=== PATIENT | female | born 1995 | race Caucasian/White ===

== ENCOUNTER 2017-07-05 19:20 | Emergency (ER) | payer OTHER ==
[~2017-07-05] VITALS: Ht 172.7 cm; Wt 99.8 kg
[~2017-07-05 19:20] MED LIST: AZIT250T PO; DEXA4TAB PO; FERR240T9 PO; IBP600T1 PO; PREN1TAB19 PO
--- OUTSIDE RECORDS SUMMARY | 2017-07-05 19:25 | XMS REPORT ---
Author Author JASPAL OCAMPO Organization [facility] Address [address] [place] [address] Care Team Providers Care Computer Systems Information Director Name Role Phone CONNOR OCAMPOICE Unavailable PROBLEMS Type Condition ICD9-CM Code [id number] Code Onset Dates Condition Status SNOMED Code Problem ADHD (attention deficit hyperactivity disorder) 314.01 Active 089836352 ALLERGIES No Known Allergies SOCIAL HISTORY Never Assessed PLAN OF CARE Activity Details Follow Up prn Reason: VITAL SIGNS Height 68 in 2016-05-14 Weight 245.8 lbs 2016-05-14 Temperature 97.4 degrees Fahrenheit 2016-05-14 Heart Rate 86 bpm 2016-05-14 Respiratory Rate 18 2016-05-14 BMI 37.37 kg/m2 2016-05-14 Blood pressure systolic 126 mmHg 2016-05-14 Blood pressure diastolic 76 mmHg 2016-05-14 MEDICATIONS No Known Medications RESULTS Name Result Date Reference Range STREP A (IN HOUSE) 2016-05-14 STREP A negative Control + Lot # [id number] Exp date august 20 PROCEDURES Procedure Date Ordered Result Body Site STREP A ASSAY W/OPTIC May 14, 2016 IMMUNIZATIONS No Known Immunizations MEDICAL (GENERAL) HISTORY Type Description Date Hospitalization History childbirth only 09/2014
--- OUTSIDE RECORDS SUMMARY | 2017-07-05 19:25 | XMS REPORT ---
Author Author ULISES SHEIKH Organization [employer] Address Unknown Phone Unavailable Care Team Providers Care Bistro Server Name Role Phone ULISES SHEIKH CP Unavailable Allergies, Adverse Reactions, Alerts Substance Reaction Event Type N.K.D.A. 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 [address] 28-0.8 MG Orally not defined Procedures Procedure Coding System Code Date INSERT DRUG IMPLANT DEVICE CPT-4 55373 Nov 27, 2014 URINE TEST CPT-4 03833 Nov 27, 2014 ETONOGESTREL IMPLANT SYSTEM CPT-4 J7307 Nov 27, 2014 Vital Signs Date/Time: Nov 27, 2014 Temperature 98.2 F Weight 211.5 lbs Height 68 in BMI 32.15 Index Blood Pressure Diastolic 76 mmHg Blood Pressure Systolic 118 mmHg Cardiac Monitoring Heart Rate 80 bpm Results Name Result Date Reference Range Unit Abnormality Flag TEST, URINE (IN HOUSE) Summary Purpose eClinicalWorks Submission
--- OUTSIDE RECORDS SUMMARY | 2017-07-05 19:25 | XMS REPORT ---
Author Author SOFY TOMLINSON Organization [facility] Address [address] [place] [address] Care Team Providers Care Visual Merchandising Coordinator Name Role Phone SOFY TOMLISNON Unavailable PROBLEMS Type Condition ICD9-CM Code IHP76-GX Code Onset Dates Condition Status SNOMED Code Problem ADHD (attention deficit hyperactivity disorder) 314.01 Active 168224699 Assessment Encounter for Nexplanon removal Z30.46 Mar, Active 901127862 Assessment control counseling Z30.9 Mar, Active 81930762 ALLERGIES Substance Reaction Event Type Date Status N.K.D.A. Unknown Non Drug Allergy Mar, Unknown SOCIAL HISTORY No smoking Hx information available PLAN OF CARE Activity Details Future/Pending Procedure NEXPLANON REMOVAL prn,Reason: VITAL SIGNS Height 68 in 2016-03-17 Weight 245 lbs 2016-03-17 Heart Rate 84 bpm 2016-03-17 Respiratory Rate 20 2016-03-17 BMI 37.25 kg/m2 2016-03-17 Blood pressure systolic 100 mmHg 2016-03-17 Blood pressure diastolic 70 mmHg 2016-03-17 MEDICATIONS Medication Instructions Dosage Frequency Start Date End Date Duration Status Benadryl 25 MG Active RESULTS Name Result Date Reference Range TEST, URINE (IN HOUSE) 2016-03-17 RESULTS Negative Lot # [id number] Control Exp date 07/2017 PROCEDURES Procedure Date Ordered Related Diagnosis Body Site REMOVE DRUG IMPLANT DEVICE Mar 17, 2016 URINE TEST Mar 17, 2016 IMMUNIZATIONS No Known Immunizations
--- OUTSIDE RECORDS SUMMARY | 2017-07-05 19:26 | XMS REPORT ---
Author THUY Lanier Organization [employer] Address Unknown Phone Unavailable Care Team Providers Care Harbor Tug Captain Name Role Phone THUY FRANKLIN CP Unavailable Allergies, Adverse Reactions, Alerts Substance Reaction Event Type N.K.D.A. Info Not Available Non Drug Allergy Problems Problem Type Condition Code Onset Dates Condition Status Assessment Folliculitis L73.9 Active Problem ADHD (attention deficit hyperactivity disorder) 314.01 Active Medications Medication Code System Code Instructions Start Date End Date Status Dosage Concerta [facility] [address]-98 18 MG Orally Once a day Dec 06, 2014 1 tablet in the morning [facility] [address] 28-0.8 MG Orally not defined Doxycycline Hyclate [facility] [address]-78 100 MG Orally every 12 hrs Feb 19, 2016 Feb 29, 2016 1 capsule Procedures Procedure Coding System Code Date Office Visit, Est Pt., Level 3 CPT-4 35612 Feb 19, 2016 Vital Signs Date/Time: Feb 19, 2016 Cardiac Monitoring Heart Rate 108 bpm Weight 245 lbs Height 68 in BMI 37.25 Index Blood Pressure Diastolic 78 mmHg Blood Pressure Systolic 116 mmHg Results No Known Results Summary Purpose eClinicalWorks Submission
--- OUTSIDE RECORDS SUMMARY | 2017-07-05 19:26 | XMS REPORT | Continuity of Care Document ---
Author Author [facility] Organization [facility] Address Unknown Phone Unavailable Allergies Active Description Code Type Severity Reaction Onset Reported/Identified Relationship to Patient Clinical Status Yes No Known Drug Allergies [id number] Drug Allergy Unknown N/A 09/25/2014 Medications There is no data. Problems Date Dx Coded Attending Type Code Diagnosis Diagnosed By 09/27/2014 TODD DE LOS SANTOS DO Ot 285.9 ANEMIA NOS 09/27/2014 TODD DE LOS SANTOS DO Ot 648.22 ANEMIA-DELIVERED W P/P 09/27/2014 TODD DE LOS SANTOS DO Ot 648.91 OTH CURR COND-DELIVERED 09/27/2014 TODD DE LOS SANTOS DO Ot 665.41 HIGH VAGINAL LACER-DELIV 09/27/2014 TODD DE LOS SANTOS DO Ot V02.51 GROUP B STREPT CARRIER/SUSPECTED CARRIER 09/27/2014 TODD DE LOS SANTOS DO Ot V27.0 DELIVER-SINGLE LIVEBORN 01/01/2016 THUY CAMPBELL DO Ot E66.9 OBESITY, UNSPECIFIED 01/01/2016 THUY CAMPBELL DO Ot F17.210 NICOTINE DEPENDENCE, CIGARETTES, UNCOMPL 01/01/2016 THUY CAMPBELL DO Ot H61.22 IMPACTED CERUMEN, LEFT EAR 01/01/2016 THUY CAMPBELL DO Ot H92.02 OTALGIA, LEFT EAR 01/01/2016 THUY CAMPBELL DO Ot J02.9 ACUTE PHARYNGITIS, UNSPECIFIED 01/01/2016 THUY CAMPBELL DO Ot R59.1 GENERALIZED ENLARGED LYMPH NODES 01/02/2016 THUY CAMPBELL DO Ot E66.9 OBESITY, UNSPECIFIED 01/02/2016 THUY CAMPBELL DO Ot F17.210 NICOTINE DEPENDENCE, CIGARETTES, UNCOMPL 01/02/2016 THUY CAMPBELL DO Ot H61.22 IMPACTED CERUMEN, LEFT EAR 01/02/2016 THUY CAMPBELL DO Ot H92.02 OTALGIA, LEFT EAR 01/02/2016 THUY CAMPBELL DO, Ot J02.9 ACUTE PHARYNGITIS, UNSPECIFIED 01/02/2016 ADRIAN THUY GUERIN Ot R59.1 GENERALIZED ENLARGED LYMPH NODES Procedures Code Description Performed By Performed On 75.69 09/25/2014 Results Test Result Range Complete blood count (CBC) with automated white blood cell (WBC) differential - 01/01/16 21:45 Blood leukocytes automated count (number/volume) 11.9 10*3/uL 4.3-11.0 Blood erythrocytes automated count (number/volume) 4.91 10*6/uL 4.35-5.85 Venous blood hemoglobin measurement (mass/volume) 13.6 g/dL 11.5-16.0 Blood hematocrit (volume fraction) 41 % 35-52 Automated erythrocyte mean corpuscular volume 84 [foz_us] 80-99 Automated erythrocyte mean corpuscular hemoglobin (mass per erythrocyte) 28 pg 25-34 Automated erythrocyte mean corpuscular hemoglobin concentration measurement ( mass/volume) 33 g/dL 32-36 Automated erythrocyte distribution width ratio 14.9 % 10.0-14.5 Automated blood platelet count (count/volume) 341 10*3/uL 130-400 Automated blood platelet mean volume measurement 9.5 [foz_us] 7.4-10.4 Automated blood neutrophils/100 leukocytes 64 % 42-75 Automated blood lymphocytes/100 leukocytes 30 % 12-44 Blood monocytes/100 leukocytes 5 % 0-12 Automated blood eosinophils/100 leukocytes 2 % 0-10 Automated blood basophils/100 leukocytes 0 % 0-10 Blood neutrophils automated count (number/volume) 7.6 10*3 1.8-7.8 Blood lymphocytes automated count (number/volume) 3.5 10*3 1.0-4.0 Blood monocytes automated count (number/volume) 0.6 10*3 0.0-1.0 Automated eosinophil count 0.2 10*3/uL 0.0-0.3 Automated blood basophil count (count/volume) 0.0 10*3/uL 0.0-0.1 Streptococcus pyogenes antigen detection - 01/01/16 21:45 Streptococcus pyogenes antigen detection NEGATIVE NEGATIVE Serum or plasma choriogonadotropin ( test) detection - 01/01/16 21:45 Serum or plasma choriogonadotropin ( test) detection NEGATIVE NEGATIVE Bacterial throat culture - 01/01/16 21:45 Bacterial throat culture NBS NRG THYROID ANALYZER - 03/26/17 08:48 TSH 0.55 mIU/L NRG Encounters ACCT No. Visit Date/Time Discharge Status Pt. Type Provider Facility Loc./Unit Complaint [id number] 01/01/2016 20:54:00 01/01/2016 22:39:00 DIS Emergency ADRIANTHUY SALES DO [facility] ER L EAR PAIN/SORE THROAT [id number] 09/25/2014 19:07:00 09/27/2014 16:30:00 DIS Inpatient TODD DE LOS SANTOS DO [facility] LDRP LABOR [id number] 06/24/2017 10:40:00 06/24/2017 23:59:59 [facility] Outpatient JUDY CUMMINGS [facility] [id number] 03/26/2017 09:20:00 Document Registration
--- OUTSIDE RECORDS SUMMARY | 2017-07-05 19:26 | XMS REPORT ---
Author OLINDA Chambers [facility] eClinicalWorks Address Unknown Phone Unavailable Care Team Providers Care Tube Teller Name Role Phone OLINDA ARRIOLA Unavailable Allergies No Known Allergies Problems Problem Type Condition ICD-9 Code Onset Dates Condition Status Assessment ADHD (attention deficit hyperactivity disorder) 314.01 Active Problem Upper respiratory infection, viral 465.9 Active Problem ADHD (attention deficit hyperactivity disorder) 314.01 Active Problem Routine adult health maintenance V70.0 Active Problem , normal first V22.0 Active Problem Anemia affecting 648.20 Active Problem Streptococcus b carrier state affecting 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
--- OUTSIDE RECORDS SUMMARY | 2017-07-05 19:26 | XMS REPORT ---
Author Author OLINDA ARRIOLA [facility] e[employer] Address Unknown Phone Unavailable Care Team Providers Care Registered Land Surveyor Name Role Phone OLINDA ARRIOLA CP Unavailable Allergies, Adverse Reactions, Alerts Substance Reaction Event Type N.K.D.A. Info Not Available Non Drug Allergy Problems Problem Type Condition ICD-9 Code Onset Dates Condition Status Assessment Upper respiratory infection, viral 465.9 Active Assessment ADHD (attention deficit hyperactivity disorder) 314.01 [...] Instructions Start Date End Date Status Dosage [facility] [address] 28-0.8 MG Orally not defined Procedures Procedure Coding System Code Date Office Visit, Est Pt., Level 4 CPT-4 39922 Dec 04, 2014 No Charge CPT-4 20723 Dec 04, 2014 Vital Signs Date/Time: Dec 04, 2014 Temperature 97.8 F Weight 213.9 lbs Height 68 in BMI 32.52 Index Blood Pressure Diastolic 64 mmHg Blood Pressure Systolic 116 mmHg Cardiac Monitoring Heart Rate 100 bpm Results Name Result Date Reference Range Unit Abnormality Flag [employer] Summary Purpose eClinicalWorks Submission
--- NOTE | 2017-07-05 20:04 | ED Hip Pain/Injury ---
General Chief Complaint: Hip/Pelvic Problems Stated Complaint: TAILBONE PAIN Nursing Triage Note: PT TO ED 10 W/ C/O TAILBONE PAIN ONSET LAST WEEK AFTER FALLING DOWN STAIRS AT WORK. DENIES WORK COMP. Source: patient Exam Limitations: no limitations History of Present Illness Date Seen by Provider: Jul 05, 2017 Time Seen by Provider: 19:59 Initial Comments The patient presents to the ER by private conveyance with a chief complaint that approximately one week ago 06/28/17 she fell down some stairs onto her backside and also hit her right elbow. She had some bruising this prematurity cleared up on her right elbow and she has full function of her upper extremities. However with concerns her today is because she has had some tingling and pain in her coccyx region. It hurts to push on it and sometimes hurts to sit on it for prolonged periods of time. She has been using Tylenol and ice for the first couple days as well as heating pads at home. She is concerned because has not gotten better in a week. She does not think there is any bruising there. She has never broke her coccyx, sacrum or anything else. She is not concerned about her elbow presently. She just wants know if it's broken and if she needs to have any kind of work restrictions she needs a note for work. She has not sought medical evaluation anywhere else for this fall. No saddle anesthesia, incontinence of bowel or bladder, weakness or numbness, radiation of pain away from the coccyx. Allergies and Home Medications Allergies Coded Allergies: No Known Drug Allergies (Unverified , 09/25/14) Home Medications Azithromycin 250 Mg Tablet, 250 MG PO DAILY Prescribed by: THUY CAMPBELL on 01/01/162233 Dexamethasone 4 Mg Tablet, 12 MG PO ONCE Prescribed by: THUY CAMPBELL on 01/01/162233 Patient Home Medication List Home Medication List Reviewed: Yes Constitutional: No chills, No diaphoresis EENTM: No ear discharge, No ear pain Respiratory: No cough, No short of breath Cardiovascular: No chest pain, No edema, No palpitations Gastrointestinal: No abdominal pain, No constipation, No diarrhea, No nausea Genitourinary: No discharge, No dysuria : No LMP: Jun 30, 2017 Control/STD Prophylaxis: Other (condoms) Musculoskeletal: No back pain, No joint pain Skin: No pruritus, No rash, other (old healing ecchymosis in side the right elbow) Past Ifxxoot-Iszczt-Cwzgvp Hx Patient Social History Alcohol Use: Denies Use Recreational Drug Use: No Smoking Status: Former Smoker Type Used: Cigarettes Former Smoker, Quit: Jun 29, 2017 Recent Foreign Travel: No Contact w/Someone Who Travel: No Recent Infectious Disease Expo: No Recent Hopitalizations: No Physical Abuse: No Sexual Abuse: No Mistreated: No Fear: No Immunizations Up To Date Tetanus Booster (TDap): Less than 5yrs PED Vaccines UTD: Yes Seasonal Allergies Seasonal Allergies: No Surgeries History of Surgeries: No Respiratory History of Respiratory Disorde: No Cardiovascular History of Cardiac Disorders: No Neurological History of Neurological Disord: No Reproductive System Hx Reproductive Disorders: No Sexually Transmitted Disease: No HIV/AIDS: No Female Reproductive Disorders: Denies Gastrointestinal History of Gastrointestinal Di: No Musculoskeletal History of Musculoskeletal Dis: No Endocrine History of Endocrine Disorders: No Cancer History of Cancer: No Psychosocial History of Psychiatric Problem: No Suicide Risk Score: 0 Integumentary History of Skin or Integumenta: No ( ) Blood Transfusions History of Blood Disorders: No Adverse Reaction to a Blood Tr: No Family Medical History Family Medial History: Psychosocial problem 19 MOTHER (pp depression ) No Family History of: AIDS Abdominal aortic aneurysm [place]'s disease Alcoholism Alzheimer's disease Aphasia Arthritis Asthma Cancer of mouth Cardiovascular disease Cataracts Colon cancer Completed stroke Congenital disease Congenital heart disease Coronary thrombosis Cystic fibrosis Deafness or hearing loss Dementia Diabetes mellitus Drug abuse Dysphasia Fibrocystic disease of breast Gastroenteritis Glaucoma Headache disorder Hypercholesterolemia Hypertension Infertility Kidney disease Myocardial infarction Neoplasm Not obtainable due to adoption Osteoporosis Parkinson's disease Prostate cancer Respiratory disorder Seizure disorder Severe allergy Thyroid disease Tuberculosis Visual disorder Physical Exam Vital Signs Vital Signs - First Documented 07/05/17 19:42 Temp 98.3 Pulse 98 Resp 20 B/P (MAP) 123/72 (89) Pulse Ox 99 O2 Delivery Room Air Capillary Refill : Less Than 3 Seconds General Appearance: No Apparent Distress, WD/WN HEENT: PERRL/EOMI, Pharynx Normal Neck: Full Range of Motion, Normal Inspection, Non Tender, Supple Respiratory: No Accessory Muscle Use, No Respiratory Distress Gastrointestinal: Non Tender, Soft Back: Normal Inspection, Vertebral Tenderness (over sacrum and coccyx midline) Extremity: Normal Capillary Refill, Normal Inspection, No Pedal Edema Neurologic/Psychiatric: Alert, Oriented x3, No Motor/Sensory Deficits, Normal Mood/Affect Progress/Results/Core Measures Results/Orders My Orders Orders - AGUSTIN PAGE Sacrum And Coccyx (07/05/17 19:58) Vital Signs/I&O Vital Sign - Last 12Hours 07/05/17 19:42 Temp 98.3 Pulse 98 Resp 20 B/P (MAP) 123/72 (89) Pulse Ox 99 O2 Delivery Room Air Blood Pressure Mean: 89 Diagnostic Imaging Diagonstic Imaging: Xray Plain Films/CT/US/NM/MRI: other (sacrum and coccyx) Comments [facility]. [place] NAME: AILEEN HERNANDEZ [facility] REC#: [id number] PT STATUS: REG ER : 1995 PHYSICIAN: AGUSTIN PAGE MD ADMIT DATE: 07/05/17/ER Draft Date of Exam:07/05/17 SACRUM AND COCCYX EXAM: SACRUM AND COCCYX INDICATION: Fall. Tailbone pain. COMPARISON: None. FINDINGS: No fracture or malalignment. Sacroiliac joints are unremarkable. Bowel contents obscure the sacrum on the AP views. IMPRESSION: No acute radiographic findings in the sacrum or coccyx. Dictated on workstation # [id number] Dict: 07/05/172100 Trans: 07/05/172103 [facility] 0904-1521 Interpreted by: CARLENE CARDENAS MD Electronically signed by: Reviewed: Reviewed by Me Departure Impression Impression: Primary Impression: Fall Qualified Codes: W19.XXXA - Unspecified fall, initial encounter Additional Impression: Contusion of sacrum Qualified Codes: S30.0XXA - Contusion of lower back and pelvis, initial encounter Disposition: 01 HOME, SELF-CARE Condition: Stable Departure-Patient Inst. Decision time for Depature: 21:11 Referrals: [facility] (PCP/Family) Primary Care Physician Patient Instructions: Contusion (DC) Add. Discharge Instructions: Heating pads or icy hot or similar creams will be helpful. You can use Tylenol 1000 mg every 8 hours as well as ibuprofen 800 mg every 8 hours for your pain. Try sitting on a padded chair to get your weight off of the sacrum. You should expect in the next couple weeks for the pain to resolve. Follow up with a primary care physician as needed. All discharge instructions reviewed with patient and/or family. Voiced understanding. Work/School Note: Work Release Form Date Seen in the Emergency Department: Jul 05, 2017 Return to Work: Jul 06, 2017 Restrictions: No Restrictions Copy Copies To 1: TODD DE LOS SANTOS TITUS J Jul 05, 2017 20:04
--- NOTE | 2017-07-05 21:05 | Diagnostic Imaging Report ---
EXAM: SACRUM AND COCCYX INDICATION: Fall. Tailbone pain. COMPARISON: None. FINDINGS: No fracture or malalignment. Sacroiliac joints are unremarkable. Bowel contents obscure the sacrum on the AP views. IMPRESSION: No acute radiographic findings in the sacrum or coccyx. Dictated by: Dictated on workstation # [id number]
[2017-07-05 21:15] VITALS: BP 0/0
== END 2017-07-05 21:15 | disposition home or self-care (01) ==
LOC: EDUNIT# 19:20 → ER 19:22
DX: S30.0XXA Contusion of lower back and pelvis, initial encounter (principal); Z87.891 Personal history of nicotine dependence; W10.9XXA Fall (on) (from) unspecified stairs and steps, initial encounter
CPT/HCPCS: 72220

== ENCOUNTER 2018-03-20 23:52 | Emergency (ER) | payer OTHER ==
[~2018-03-20] VITALS: Ht 172.7 cm; Wt 90.7 kg
--- OUTSIDE RECORDS SUMMARY | 2018-03-20 23:59 | XMS REPORT ---
Author Author JUDY CUMMINGS Organization [facility] Address [address] [place] [address] Care Team Providers Care Fixed Income Director Name Role Phone CUMMINGSJUDY Perkins Unavailable PROBLEMS Type Condition ICD9-CM Code [id number] Code Onset Dates Condition Status SNOMED Code Problem Other obesity due to excess calories E66.09 Active 867730036 Problem Body mass index (BMI) of 35.0-35.9 in adult Z68.35 Active 127560168 Problem Low HDL (under 40) E78.6 Active 806587198 Problem Elevated LDL cholesterol level E78.00 Active 267023542 Problem Obesity (BMI 30.0-34.9) E66.9 Active 525557603605565 Problem Attention deficit disorder with hyperactivity F90.9 Active 278650862 ALLERGIES No Information ENCOUNTERS Encounter Location Date Diagnosis [place] [id number] [place] [address] 17767- 7279 Nov, [place] [address] [place] [id number] [place] [address] 65216- 8831 Nov, Attention deficit disorder with hyperactivity F90.9 [place] [address] [place] [id number] [place] [address] 45668- 2595 Oct, Attention deficit disorder with hyperactivity F90.9 ; Sore throat J02.9 ; Obesity (BMI 30.0-34.9) E66.9 ; Oral contraception initial prescription Z30.011 and Controlled substance agreement signed Z79.899 [place] [address] [place] [id number] [place] [address] 21167- 9730 Jun, 2018 Attention deficit disorder with hyperactivity F90.9 ; Other obesity due to excess calories E66.09 ; Body mass index (BMI) of 35.0-35.9 in adult Z68.35 ; Tobacco abuse Z72.0 ; Tobacco abuse counseling Z71.6 ; Low HDL ( under 40) E78.6 and Elevated LDL cholesterol level E78.[address] [address] Mar, Attention deficit disorder with hyperactivity F90.9 ; Pharyngitis due to Streptococcus species J02.0 ; Screening cholesterol level Z13.220 and Screening for diabetes mellitus (DM) Z13.[address] 36417- 9005 Mar, Attention deficit disorder with hyperactivity F90.9 ; Pharyngitis due to Streptococcus species J02.0 ; Obesity (BMI 30.0-34.9) E66.9 ; Screening cholesterol level Z13.220 ; Screening for diabetes mellitus (DM) Z13.1 and Nausea R11.0 [facility] WALK IN [address] [address] Jan, Sore throat J02.9 and Strep pharyngitis J02.0 [facility] WALK IN [address] [address]87 [address]17[address] Dec, Sore throat J02.9 [facility] WALK IN [address] 10[address]6515 Nov, Sore throat J02.9 and Acute non-recurrent streptococcal tonsillitis J03.[address] 88[address]- 3695 Oct, Impacted cerumen of both ears H61.23 and Acute swimmers ear of right side H60.331 [facility] WALK IN [address] [address] May, Sore throat J02.9 ; Other viral agents as the cause of diseases classified elsewhere B97.89 and Acute upper respiratory infection, unspecified J06.[address] 9[address]39- 6688 Mar, Encounter for Nexplanon removal Z30.46 and control counseling Z30.9 [facility] [address] [place] [address] 16454 -1705 Feb, Folliculitis L73.9 [facility] [address] [place] [id number] [place] [address] 93420- 2825 03 Dec, 2014 ADHD (attention deficit hyperactivity disorder) 314.01 [facility] [address] [place] [id number] [place] [address] 10749- 0180 Dec, Upper respiratory infection, viral 465.9 and ADHD ( attention deficit hyperactivity disorder) 314.01 [facility] [address] [place] [id number] [place] [address] 22754- 9750 Nov, Nexplanon insertion V25.5 [facility] [address] [place] [id number] [place] [address] 70294- 6446 Nov, Routine follow-up V24.2 and Contraceptive education V25.09 [facility] [address] [place] [id number] [place] [address] 82165- 9754 Oct, [facility] [address] [place] [id number] [place] [address] 83340- 2453 Oct, [facility] [address] [place] [id number] [place] [address] 22282- 0296 Sep, [facility] [address] [place] [id number] [place] [address] 31661- 9951 Sep, [facility] [address] [place] [id number] [place] [address] 54989- 0401 Sep, , normal first V22.0 [place] [address] [place] [id number] [place] [address] 23772- 1062 Sep, [place] [address] [address]10- 0147 Sep, Streptococcus b carrier state affecting 648.90 ; , normal first V22.0 and Rh negative status during 656.10 [facility] [address] [place] Sep, [facility] [address] [facility] [id number] [address] Sep, [facility] [address] [facility] [id number] [place] Sep, , normal first V22.0 ; screening for streptococcus B V28.6 ; Anemia affecting 648.20 and TDAP DX V06.1 IMMUNIZATIONS No Known Immunizations SOCIAL HISTORY Never Assessed REASON FOR VISIT Requests return call PLAN OF CARE VITAL SIGNS MEDICATIONS Medication Instructions Dosage Frequency Start Date End Date Duration Status Vyvanse 30 MG Orally Once a day 1 capsule in the morning 24h Nov, Active RESULTS No Results PROCEDURES No Known procedures INSTRUCTIONS MEDICATIONS ADMINISTERED No Known Medications MEDICAL (GENERAL) HISTORY Type Description Date Medical History ADHD Hospitalization History childbirth only 09/2014
--- OUTSIDE RECORDS SUMMARY | 2018-03-20 23:59 | XMS REPORT ---
Author Author THUY FRANKLIN Organization [facility] Address [address] [place] [address] Care Team Providers Care Spanish Translator Name Role Phone THUY FRANKLIN Unavailable PROBLEMS Type Condition ICD9-CM Code YNX10-DR Code Onset Dates Condition Status SNOMED Code Problem Other obesity due to excess calories E66.09 Active 644412315 Problem Body mass index (BMI) of 35.0-35.9 in adult Z68.35 Active 901680762 Problem Low HDL (under 40) E78.6 Active 002111058 Problem Elevated LDL cholesterol level E78.00 Active 491817107 Problem Obesity (BMI 30.0-34.9) E66.9 Active 212357978157392 Problem Attention deficit disorder with hyperactivity F90.9 Active 641904814 ALLERGIES No Known Allergies ENCOUNTERS Encounter Location Date Diagnosis [facility] [address] [place] [address] 80424- 1704 Jun, Attention deficit disorder with hyperactivity F90.9 ; Other obesity due to excess calories E66.09 ; Body mass index (BMI) of 35.0-35.9 in adult Z68.35 ; Tobacco abuse Z72.0 ; Tobacco abuse counseling Z71.6 ; Low HDL ( under 40) E78.6 and Elevated LDL cholesterol level E78.00 [facility] [address] [place] [id number] [place] [address] 53588- 4084 Mar, Attention deficit disorder with hyperactivity F90.9 ; Pharyngitis due to Streptococcus species J02.0 ; Screening cholesterol level Z13.220 and Screening for diabetes mellitus (DM) Z13.1 [facility] [address] [place] [id number] [place] [address] 92408- 9182 Mar, Attention deficit disorder with hyperactivity F90.9 ; Pharyngitis due to Streptococcus species J02.0 ; Obesity (BMI 30.0-34.9) E66.9 ; Screening cholesterol level Z13.220 ; Screening for diabetes mellitus (DM) Z13.1 and Nausea R11.0 [facility] [place] [address] [address] Jan, Sore throat J02.9 and Strep pharyngitis J02.0 [facility] [place] [address] 91085 [address]7394 Dec, Sore throat J02.9 [facility] IN [address] [address]1786 Nov, Sore throat J02.9 and Acute non-recurrent streptococcal tonsillitis J03.[address] 79111- 2706 Oct, Impacted cerumen of both ears H61.23 and Acute swimmers ear of right side H60.331 [facility] IN [address] 85[address] May, Sore throat J02.9 ; Other viral agents as the cause of diseases classified elsewhere B97.89 and Acute upper respiratory infection, unspecified J06.[address] 44710- 280[address] 13 Mar, 2016 Encounter for Nexplanon removal Z30.46 and control counseling Z30.9 [facility] [place] [id number] [place] [address] 61129 -6135 16 Feb, 2016 Folliculitis L73.[address] 98086- 8534 03 Dec, 2014 ADHD (attention deficit hyperactivity disorder) 314.[address] 33278- 7957 Dec, Upper respiratory infection, viral 465.9 and ADHD ( attention deficit hyperactivity disorder) 314.[address] 25676- 4020 Nov, Nexplanon insertion V25.5 [facility] [address] [place] [address] 69711- 9526 Nov, Routine follow-up V24.2 and Contraceptive education V25.09 [facility] [address] [place] [address] 50793- 1843 Oct, [facility] [address] [place] [id number] [place] [address] 56188- 0689 Oct, [facility] [address] [place] [address] 01058- 5234 Sep, [place] [address] [place] [id number] [place] [address] 26012- 5147 Sep, [facility] [address] [place] [address] 87550- 5457 Sep, , normal first V22.0 [facility] [address] [place] [address] 67081- 4403 Sep, [facility] [address] [place] [id number] [place] [address] 61472- 3004 Sep, Streptococcus b carrier state affecting 648.90 ; , normal first V22.0 and Rh negative status during 656.10 [place] [address], [place] [address] 3[address] Sep, [facility] [address], [place] [address] 239[address] Sep, [facility] [address] [id number] [address]- 0706 Sep, , normal first V22.0 ; screening for streptococcus B V28.6 ; Anemia affecting 648.20 and TDAP DX V06.1 IMMUNIZATIONS No Known Immunizations SOCIAL HISTORY Never Assessed REASON FOR VISIT sore throat started yesterday JStrasserRN PLAN OF CARE VITAL SIGNS Height 68 in 2016-12-23 Weight 219.4 lbs 2016-12-23 Temperature 98.6 degrees Fahrenheit 2016-12-23 Heart Rate 84 bpm 2016-12-23 Respiratory Rate 18 2016-12-23 BMI 33.36 kg/m2 2016-12-23 Blood pressure systolic 110 mmHg 2016-12-23 Blood pressure diastolic 72 mmHg 2016-12-23 MEDICATIONS Medication Instructions Dosage Frequency Start Date End Date Duration Status Augmentin 875-125 MG Orally every 12 hrs 1 tablet 12h Dec,Dec 10 day(s) Active RESULTS Name Result Date Reference Range STREP A (IN HOUSE) 2016-12-23 STREP A positive Control + Lot # [id number] Exp date PROCEDURES Procedure Date Ordered Result Body Site STREP A ASSAY W/OPTIC Dec 23, 2016 INSTRUCTIONS MEDICATIONS ADMINISTERED No Known Medications MEDICAL (GENERAL) HISTORY Type Description Date Medical History ADHD Hospitalization History childbirth only 09/2014
--- OUTSIDE RECORDS SUMMARY | 2018-03-20 23:59 | XMS REPORT ---
Author Author JUDY CUMMINGS Organization [facility] Address [address] [place] [address] Care Team Providers Care Ring Sewer Name Role Phone CUMMINGSJUDY Perkins Unavailable PROBLEMS Type Condition ICD9-CM Code ISU99-HC Code Onset Dates Condition Status SNOMED Code Problem Other obesity due to excess calories E66.09 Active 996775463 Problem Body mass index (BMI) of 35.0-35.9 in adult Z68.35 Active 589921050 Problem Low HDL (under 40) E78.6 Active 121282634 Problem Elevated LDL cholesterol level E78.00 Active 740854038 Problem Obesity (BMI 30.0-34.9) E66.9 Active 226925402214725 Problem Attention deficit disorder with hyperactivity F90.9 Active 311361501 ALLERGIES No Information ENCOUNTERS Encounter Location Date Diagnosis [place] [address] [place] [address] 75513- 3875 Nov, [place] [address] [place] [id number] [place] [address] 53264- 8292 Nov, Attention deficit disorder with hyperactivity F90.9 [place] [address] [place] [id number] [place] [address] 31677- 2412 Oct, Attention deficit disorder with hyperactivity F90.9 ; Sore throat J02.9 ; Obesity (BMI 30.0-34.9) E66.9 ; Oral contraception initial prescription Z30.011 and Controlled substance agreement signed Z79.899 [place] [address] [place] [id number] [place] [address] 81977- 9710 Jun, 2018 Attention deficit disorder with hyperactivity F90.9 ; Other obesity due to excess calories E66.09 ; Body mass index (BMI) of 35.0-35.9 in adult Z68.35 ; Tobacco abuse Z72.0 ; Tobacco abuse counseling Z71.6 ; Low HDL ( under 40) E78.6 and Elevated LDL cholesterol level E78.[address] 33721- 9345 Mar, Attention deficit disorder with hyperactivity F90.9 ; Pharyngitis due to Streptococcus species J02.0 ; Screening cholesterol level Z13.220 and Screening for diabetes mellitus (DM) Z13.[address] 11493- 9383 Mar, Attention deficit disorder with hyperactivity F90.9 ; Pharyngitis due to Streptococcus species J02.0 ; Obesity (BMI 30.0-34.9) E66.9 ; Screening cholesterol level Z13.220 ; Screening for diabetes mellitus (DM) Z13.1 and Nausea R11.[address] [facility] WALK IN [address] [address] Jan, Sore throat J02.9 and Strep pharyngitis J02.[address] [facility] WALK IN [address] 44259 -2318 Dec, Sore throat J02.[address] [facility] WALK IN [address] 22[address] Nov, Sore throat J02.9 and Acute non-recurrent streptococcal tonsillitis J03.[address] 60069- 1091 Oct, Impacted cerumen of both ears H61.23 and Acute swimmers ear of right side H60.[address] [facility] WALK IN [address] 61788 -9828 May, Sore throat J02.9 ; Other viral agents as the cause of diseases classified elsewhere B97.89 and Acute upper respiratory infection, unspecified J06.[address] 51321- 0364 Mar, Encounter for Nexplanon removal Z30.46 and control counseling Z30.9 [facility] [address] [place] [address] 39044 -0872 Feb, Folliculitis L73.9 [facility] [address] [place] [id number] [place] [address] 84932- 9241 03 Dec, 2014 ADHD (attention deficit hyperactivity disorder) 314.01 [facility] [address] [place] [id number] [place] [address] 95302- 9574 Dec, Upper respiratory infection, viral 465.9 and ADHD ( attention deficit hyperactivity disorder) 314.01 [facility] [address] [place] [id number] [place] [address] 50663- 7335 Nov, Nexplanon insertion V25.5 [facility] [address] [place] [id number] [place] [address] 13955- 2835 Nov, Routine follow-up V24.2 and Contraceptive education V25.09 [facility] [address] [place] [id number] [place] [address] 62262- 9279 Oct, [facility] [address] [place] [id number] [place] [address] 19014- 7970 Oct, [facility] [address] [place] [id number] [place] [address] 64429- 2158 Sep, [facility] [address] [place] [id number] [place] [address] 28643- 4035 Sep, [facility] [address] [place] [id number] [place] [address] 78719- 6553 Sep, , normal first V22.0 [place] [address] [place] [id number] [place] [address] 37899- 6194 Sep, [place] [address] [address]- 3540 Sep, Streptococcus b carrier state affecting 648.90 ; , normal first V22.0 and Rh negative status during 656.10 [facility] [address] [place] [address] Sep, [facility] [address] [facility] [id number] [address]- 9772 Sep, [facility] [address] [facility] [id number] [place] [address]- 0609 Sep, , normal first V22.0 ; screening for streptococcus B V28.6 ; Anemia affecting 648.20 and TDAP DX V06.1 IMMUNIZATIONS No Known Immunizations SOCIAL HISTORY Never Assessed REASON FOR VISIT PLAN OF CARE VITAL SIGNS MEDICATIONS Unknown Medications RESULTS No Results PROCEDURES No Known procedures INSTRUCTIONS MEDICATIONS ADMINISTERED No Known Medications MEDICAL (GENERAL) HISTORY Type Description Date Medical History ADHD Hospitalization History childbirth only 09/2014
--- OUTSIDE RECORDS SUMMARY | 2018-03-20 23:59 | XMS REPORT ---
Author Author JUDY CUMMINGS Organization [facility] Address [address] [place] [address] Care Team Providers Care C2 Tactical Analysis Technician Name Role Phone CUMMINGSJUDY Perkins Unavailable PROBLEMS Type Condition ICD9-CM Code JWS09-JR Code Onset Dates Condition Status SNOMED Code Problem Other obesity due to excess calories E66.09 Active 276484845 Problem Body mass index (BMI) of 35.0-35.9 in adult Z68.35 Active 361303177 Problem Low HDL (under 40) E78.6 Active 838745799 Problem Elevated LDL cholesterol level E78.00 Active 678226163 Problem Obesity (BMI 30.0-34.9) E66.9 Active 411037896187367 Problem Attention deficit disorder with hyperactivity F90.9 Active 358535132 ALLERGIES No Known Allergies ENCOUNTERS Encounter Location Date Diagnosis [facility] [address] [place] [id number] [place] [address] 72784- 6731 Oct, 2018 Attention deficit disorder with hyperactivity F90.9 ; Sore throat J02.9 ; Obesity (BMI 30.0-34.9) E66.9 ; Oral contraception initial prescription Z30.011 and Controlled substance agreement signed Z79.899 [facility] [address] [place] [id number] [place] [address] 40154- 6654 Jun, Attention deficit disorder with hyperactivity F90.9 ; Other obesity due to excess calories E66.09 ; Body mass index (BMI) of 35.0-35.9 in adult Z68.35 ; Tobacco abuse Z72.0 ; Tobacco abuse counseling Z71.6 ; Low HDL ( under 40) E78.6 and Elevated LDL cholesterol level E78.00 [facility] [address] [facility] [id number] [address] Mar, Attention deficit disorder with hyperactivity F90.9 ; Pharyngitis due to Streptococcus species J02.0 ; Screening cholesterol level Z13.220 and Screening for diabetes mellitus (DM) Z13.[address] [address]- [address] 08 Mar, 2017 Attention deficit disorder with hyperactivity F90.9 ; Pharyngitis due to Streptococcus species J02.0 ; Obesity (BMI 30.0-34.9) E66.9 ; Screening cholesterol level Z13.220 ; Screening for diabetes mellitus (DM) Z13.1 and Nausea R11.0 [facility] WALK IN [address] [address] Jan, Sore throat J02.9 and Strep pharyngitis J02.0 [facility] IN [address] 61921 -9681 Dec, Sore throat J02.9 [facility] [address] 09[address] -2323 Nov, Sore throat J02.9 and Acute non-recurrent streptococcal tonsillitis J03.[address] 71999- 2254 Oct, Impacted cerumen of both ears H61.23 and Acute swimmers ear of right side H60.331 [facility] WALK IN [address] 40036 -[address]62 09 May, 2016 Sore throat J02.9 ; Other viral agents as the cause of diseases classified elsewhere B97.89 and Acute upper respiratory infection, unspecified J06.[address] 91161- 6590 13 Mar, 2016 Encounter for Nexplanon removal Z30.46 and control counseling Z30.9 [facility] WALK IN [address] 45135 -9371 16 Feb, 2016 Folliculitis L73.[address] 50298- 9675 Dec, ADHD (attention deficit hyperactivity disorder) 314.01 [facility] [address] [place] [id number] [place] [address] 54090- 6007 Dec, Upper respiratory infection, viral 465.9 and ADHD ( attention deficit hyperactivity disorder) 314.01 [facility] [address] [place] [id number] [place] [address] 53906- 5121 Nov, Nexplanon insertion V25.5 [facility] [address] 289[address]- 6477 Nov, Routine follow-up V24.2 and Contraceptive education V25.09 [facility] [address] [place] [id number] [place] [address] 57295- 9096 Oct, [facility] [address] [place] [id number] [place] [address] 46327- 2298 Oct, [facility] [address] [place] [id number] [place] [address] 58641- 2641 Sep, [facility] [address] [place] [id number] [place] [address] 26748- 5791 Sep, [facility] [address] [place] [id number] [place] [address] 84834- 0054 Sep, , normal first V22.0 [facility] [address] [place] [id number] [place] [address] 34177- 4625 Sep, [facility] [address] [place] [id number] [place] [address] 74015- 1405 Sep, Streptococcus b carrier state affecting 648.90 ; , normal first V22.0 and Rh negative status during 656.10 [facility] [address] [place] [id number] [place] [address] 99490- 4680 Sep, [facility] [address] [place] [id number] [place] [address] 27133- 8564 Sep, [facility] [address] [place] [id number] [place] [address] 61453- 9786 08 Sep, 2014 , normal first V22.0 ; screening for streptococcus B V28.6 ; Anemia affecting 648.20 and TDAP DX V06.1 IMMUNIZATIONS No Known Immunizations SOCIAL HISTORY Never Assessed REASON FOR VISIT ADHD fu -- richy kirkpatrick, patient would like to talk about weight loss program PLAN OF CARE Activity Details Follow Up 3 Months Reason:CHM/ VITAL SIGNS Height 68 in 2017-06-24 Weight 231.3 lbs 2017-06-24 Temperature 98.0 degrees Fahrenheit 2017-06-24 Heart Rate 78 bpm 2017-06-24 Respiratory Rate 18 2017-06-24 BMI 35.17 kg/m2 2017-06-24 Blood pressure systolic 110 mmHg 2017-06-24 Blood pressure diastolic 70 mmHg 2017-06-24 MEDICATIONS Medication Instructions Dosage Frequency Start Date End Date Duration Status Chantix 1 MG Orally Twice a day 1/2 tab day 1-3, 1/2 tab bid day 4-6, then 1 tab twice a day. 12h Jun, Sep, 30 day(s) Active Ondansetron 4 MG Orally every 8 hrs as needed for nausea 1 tablet on the tongue and allow to dissolve Mar, 10 days Not-Taking RESULTS No Results PROCEDURES No Known procedures INSTRUCTIONS MEDICATIONS ADMINISTERED No Known Medications MEDICAL (GENERAL) HISTORY Type Description Date Medical History ADHD Hospitalization History childbirth only 09/2014
--- OUTSIDE RECORDS SUMMARY | 2018-03-20 23:59 | XMS REPORT ---
Author Author JUDY CUMMINGS Organization [facility] Address [address] [place] [address] Care Team Providers Care Inventory Control Assistant Name Role Phone CUMMINGSJUDY Perkins Unavailable PROBLEMS Type Condition ICD9-CM Code SDU02-OD Code Onset Dates Condition Status SNOMED Code Problem Other obesity due to excess calories E66.09 Active 524412955 Problem Body mass index (BMI) of 35.0-35.9 in adult Z68.35 Active 394878143 Problem Low HDL (under 40) E78.6 Active 059317811 Problem Elevated LDL cholesterol level E78.00 Active 647880696 Problem Obesity (BMI 30.0-34.9) E66.9 Active 573918616993230 Problem Attention deficit disorder with hyperactivity F90.9 Active 715640508 ALLERGIES No Known Allergies ENCOUNTERS Encounter Location Date Diagnosis [place] [address] [place] [address] Nov, [place] [address] [place] [id number] [place] [address] 95547- 3408 Nov, Attention deficit disorder with hyperactivity F90.9 [place] [address] [place] [id number] [place] [address]32[address] 8034 Oct, Attention deficit disorder with hyperactivity F90.9 ; Sore throat J02.9 ; Obesity (BMI 30.0-34.9) E66.9 ; Oral contraception initial prescription Z30.011 and Controlled substance agreement signed Z79.899 [place] [address] [place] [id number] [place] [address]398[address] Jun, 2018 Attention deficit disorder with hyperactivity F90.9 ; Other obesity due to excess calories E66.09 ; Body mass index (BMI) of 35.0-35.9 in adult Z68.35 ; Tobacco abuse Z72.0 ; Tobacco abuse counseling Z71.6 ; Low HDL ( under 40) E78.6 and Elevated LDL cholesterol level E78.[address] [address] Mar, Attention deficit disorder with hyperactivity F90.9 ; Pharyngitis due to Streptococcus species J02.0 ; Screening cholesterol level Z13.220 and Screening for diabetes mellitus (DM) Z13.[address] [address] Mar, Attention deficit disorder with hyperactivity F90.9 ; Pharyngitis due to Streptococcus species J02.0 ; Obesity (BMI 30.0-34.9) E66.9 ; Screening cholesterol level Z13.220 ; Screening for diabetes mellitus (DM) Z13.1 and Nausea R11.0 [facility] WALK IN [address] [address] Jan, Sore throat J02.9 and Strep pharyngitis J02.0 [facility]ALK IN [address] [address] Dec, Sore throat J02.9 [facility]ALK IN [address] [address] Nov, Sore throat J02.9 and Acute non-recurrent streptococcal tonsillitis J03.[address] [address] Oct, Impacted cerumen of both ears H61.23 and Acute swimmers ear of right side H60.331 [facility]ALK IN [address] [address] May, Sore throat J02.9 ; Other viral agents as the cause of diseases classified elsewhere B97.89 and Acute upper respiratory infection, unspecified J06.[address] [address] Mar, Encounter for Nexplanon removal Z30.46 and control counseling Z30.9 [facility] [address] [address] Feb, Folliculitis L73.9 [facility] [address] [place] [id number] [place] [address] 42768- 6782 03 Dec, 2014 ADHD (attention deficit hyperactivity disorder) 314.01 [facility] [address] [place] [id number] [place] [address] 99161- 8847 Dec, Upper respiratory infection, viral 465.9 and ADHD ( attention deficit hyperactivity disorder) 314.01 [facility] [address] [place] [id number] [place] [address] 6[address]10- 8089 Nov, Nexplanon insertion V25.5 [facility] [address] [place] [id number] [place] [address] 70074- 1503 Nov, Routine follow-up V24.2 and Contraceptive education V25.09 [facility] [address] [place] [id number] [place] [address] 06806- 7493 Oct, [facility] [address] [place] [id number] [place] [address]- 8893 Oct, [facility] [address] [place] [id number] [place] [address] 3101 Sep, [facility] [address] [place] [id number] [place] [address] 97140- 6002 Sep, [facility] [address] [place] [id number] [place] [address] 42539- 4429 Sep, , normal first V22.0 [facility] [address] [place] [id number] [place] [address] 87370- 4130 Sep, [place] [address] [place] [id number] [place] [address] 54423- 7568 Sep, Streptococcus b carrier state affecting 648.90 ; , normal first V22.0 and Rh negative status during 656.10 [facility] [address] [place] [id number] [address] 15 Sep, 2014 [facility] [address] [facility] [id number] [place] [address] 08 Sep, 2014 [facility] [address] [facility] [id number] [place] [address] 08 Sep, 2014 , normal first V22.0 ; screening for streptococcus B V28.6 ; Anemia affecting 648.20 and TDAP DX V06.1 IMMUNIZATIONS No Known Immunizations SOCIAL HISTORY Never Assessed REASON FOR VISIT ADHD, patient would like to get back on Oral BC and ADHD meds -- richy kirkpatrick, HCG - NEGATIVE PLAN OF CARE Activity Details Follow Up 3 months/1 year Reason:WWE/ADHD VITAL SIGNS Height 68 in 2017-10-12 Weight 228.0 lbs 2017-10-12 Temperature 97.8 degrees Fahrenheit 2017-10-12 Heart Rate 80 bpm 2017-10-12 Respiratory Rate 20 2017-10-12 BMI 34.66 kg/m2 2017-10-12 Blood pressure systolic 120 mmHg 2017-10-12 Blood pressure diastolic 80 mmHg 2017-10-12 MEDICATIONS Medication Instructions Dosage Frequency Start Date End Date Duration Status Concerta 18 mg Orally Once a day 1 tablet in the morning 24h Oct, Nov, 28 days Active Ortho Tri-Cyclen Lo 0.18/0.215/0.25 MG-25 MCG Orally Once a day 1 tablet 24h Oct, 28 day(s) Active RESULTS No Results PROCEDURES Procedure Date Ordered Result Body Site URINE TEST October 12, 2017 No Charge October 12, 2017 09 PANEL (PROFILE 1) October 12, 2017 INSTRUCTIONS MEDICATIONS ADMINISTERED No Known Medications MEDICAL (GENERAL) HISTORY Type Description Date Medical History ADHD Hospitalization History childbirth only 09/2014
--- OUTSIDE RECORDS SUMMARY | 2018-03-20 23:59 | XMS REPORT ---
Author Author JUDY CUMMINGS Organization [facility] Address [address] [place] [address] Care Team Providers Care Fish Farmer Name Role Phone CUMMINGSJUDY Perkins Unavailable PROBLEMS Type Condition ICD9-CM Code OMQ78-SM Code Onset Dates Condition Status SNOMED Code Problem Other obesity due to excess calories E66.09 Active 691335934 Problem Body mass index (BMI) of 35.0-35.9 in adult Z68.35 Active 056502542 Problem Low HDL (under 40) E78.6 Active 056029437 Problem Elevated LDL cholesterol level E78.00 Active 725546385 Problem Obesity (BMI 30.0-34.9) E66.9 Active 955164078191197 Problem Attention deficit disorder with hyperactivity F90.9 Active 481328331 ALLERGIES No Information ENCOUNTERS Encounter Location Date Diagnosis [facility] [place] [address] [place] [address] 22465- 4276 Oct, [place] [address] [place] [id number] [place] [address] 55664- 0856 Jun, 2018 Attention deficit disorder with hyperactivity F90.9 ; Other obesity due to excess calories E66.09 ; Body mass index (BMI) of 35.0-35.9 in adult Z68.35 ; Tobacco abuse Z72.0 ; Tobacco abuse counseling Z71.6 ; Low HDL ( under 40) E78.6 and Elevated LDL cholesterol level E78.00 [facility] [place] [address] [place] [id number] [place] [address] 92536- 0655 Mar, Attention deficit disorder with hyperactivity F90.9 ; Pharyngitis due to Streptococcus species J02.0 ; Screening cholesterol level Z13.220 and Screening for diabetes mellitus (DM) Z13.1 [place] [address] [place] [id number] [place] [address] 82279- 7201 Mar, Attention deficit disorder with hyperactivity F90.9 ; Pharyngitis due to Streptococcus species J02.0 ; Obesity (BMI 30.0-34.9) E66.9 ; Screening cholesterol level Z13.220 ; Screening for diabetes mellitus (DM) Z13.1 and Nausea R11.0 [facility] WALK IN [address] [address] Jan, Sore throat J02.9 and Strep pharyngitis J02.0 [facility] IN [address] [address] Dec, Sore throat J02.9 [facility] IN [address] 9[address] Nov, Sore throat J02.9 and Acute non-recurrent streptococcal tonsillitis J03.[address] [address]- [address] Oct, Impacted cerumen of both ears H61.23 and Acute swimmers ear of right side H60.331 [facility] IN [address] [address] May, Sore throat J02.9 ; Other viral agents as the cause of diseases classified elsewhere B97.89 and Acute upper respiratory infection, unspecified J06.[address] [address]- 7[address] 13 Mar, 2016 Encounter for Nexplanon removal Z30.46 and control counseling Z30.9 [facility] IN [address] 9[address]686 16 Feb, 2016 Folliculitis L73.[address] 07[address]- 4690 03 Dec, 2014 ADHD (attention deficit hyperactivity disorder) 314.[address] 31692- [address]295 Dec, Upper respiratory infection, viral 465.9 and ADHD ( attention deficit hyperactivity disorder) 314.01 [facility] [place] [address] [address] Nov, Nexplanon insertion V25.5 [facility] [place] [address] [address] Nov, Routine follow-up V24.2 and Contraceptive education V25.09 [facility] [place] [address] [address] Oct, [facility] [place] [address] [address] Oct, [facility] [place] [address] [address] 63807- 6243 Sep, [facility] [place] [address] [place] [id number] [address] 80752- 4393 Sep, [facility] [place] [address] [address] Sep, , normal first V22.0 [facility] [place] [address] [address] Sep, [facility] [place] [address] [address] Sep, Streptococcus b carrier state affecting 648.90 ; , normal first V22.0 and Rh negative status during 656.10 [facility] [place] [address] [address] Sep, [facility] [place] [address] [address] 46[address] Sep, [facility] [place] [address] [address] Sep, , normal first V22.0 ; screening for streptococcus B V28.6 ; Anemia affecting 648.20 and TDAP DX V06.1 IMMUNIZATIONS No Known Immunizations SOCIAL HISTORY Never Assessed REASON FOR VISIT Lab (walk-in) PLAN OF CARE VITAL SIGNS MEDICATIONS Unknown Medications RESULTS No Results PROCEDURES Procedure Date Ordered Result Body Site [facility] Mar 26, 2017 MARCELINO COKER* Mar 26, 2017 INSTRUCTIONS MEDICATIONS ADMINISTERED No Known Medications MEDICAL (GENERAL) HISTORY Type Description Date Medical History ADHD Hospitalization History childbirth only 09/2014
--- OUTSIDE RECORDS SUMMARY | 2018-03-20 23:59 | XMS REPORT ---
Author TODD Schneider [facility] Address [address] [place] [address] Care Team Providers Care Creative Services Manager Name Role Phone FILIBERTO TODD Unavailable PROBLEMS Type Condition ICD9-CM Code SVE99-ER Code Onset Dates Condition Status SNOMED Code Problem Other obesity due to excess calories E66.09 Active 380058051 Problem Body mass index (BMI) of 35.0-35.9 in adult Z68.35 Active 430123273 Problem Low HDL (under 40) E78.6 Active 129447760 Problem Elevated LDL cholesterol level E78.00 Active 109868766 Problem Obesity (BMI 30.0-34.9) E66.9 Active 688214121290391 Problem Attention deficit disorder with hyperactivity F90.9 Active 381954278 ALLERGIES No Information ENCOUNTERS Encounter Location Date Diagnosis [facility] IN [facility] [address] [address] Mar, [facility] [address] [address] Nov, [facility] [address] [address] Nov, Attention deficit disorder with hyperactivity F90.9 [facility] [address] [address] 6[address] Oct, Attention deficit disorder with hyperactivity F90.9 ; Sore throat J02.9 ; Obesity (BMI 30.0-34.9) E66.9 ; Oral contraception initial prescription Z30.011 and Controlled substance agreement signed Z79.899 [facility] [address] [place] [id number] [place] [address] Jun, Attention deficit disorder with hyperactivity F90.9 ; Other obesity due to excess calories E66.09 ; Body mass index (BMI) of 35.0-35.9 in adult Z68.35 ; Tobacco abuse Z72.0 ; Tobacco abuse counseling Z71.6 ; Low HDL ( under 40) E78.6 and Elevated LDL cholesterol level E78.00 [place] [id number] [place] [address] 70610- 9485 Mar, Attention deficit disorder with hyperactivity F90.9 ; Pharyngitis due to Streptococcus species J02.0 ; Screening cholesterol level Z13.220 and Screening for diabetes mellitus (DM) Z13.[address] [address] 08 Mar, 2017 Attention deficit disorder with hyperactivity F90.9 ; Pharyngitis due to Streptococcus species J02.0 ; Obesity (BMI 30.0-34.9) E66.9 ; Screening cholesterol level Z13.220 ; Screening for diabetes mellitus (DM) Z13.1 and Nausea R11.0 [facility] WALK IN [address] [address] Jan, Sore throat J02.9 and Strep pharyngitis J02.0 [facility] WALK IN [address] 932[address] Dec, Sore throat J02.9 [facility] IN [address] [address] Nov, Sore throat J02.9 and Acute non-recurrent streptococcal tonsillitis J03.00 [place] [id number] [place] [address] 22056- 5354 Oct, Impacted cerumen of both ears H61.23 and Acute swimmers ear of right side H60.331 [facility] IN [address] [address] May, Sore throat J02.9 ; Other viral agents as the cause of diseases classified elsewhere B97.89 and Acute upper respiratory infection, unspecified J06.9 [place] [id number] [place] [address]19- 0908 13 Mar, 2016 Encounter for Nexplanon removal Z30.46 and control counseling Z30.9 [facility] [address] [place] [id number] [place] [address]53 -9483 16 Feb, 2016 Folliculitis L73.9 [facility] [address] [place] [id number] [place] [address] 04239- 0314 03 Dec, 2014 ADHD (attention deficit hyperactivity disorder) 314.01 [facility] [address] [place] [id number] [place] [address] 63290- 3593 Dec, Upper respiratory infection, viral 465.9 and ADHD ( attention deficit hyperactivity disorder) 314.01 [place] [address] [place] [id number] [place] [address] 57751- 8141 Nov, Nexplanon insertion V25.5 [place] [address] 90[address]- 8987 Nov, Routine follow-up V24.2 and Contraceptive education V25.09 [place] [address] [place] [id number] [place] [address] 15008- 3474 Oct, [place] [address] [place] [id number] [place] [address] 27579- 3779 Oct, [facility] [address] [place] [id number] [place] [address] 56329- 8863 Sep, [facility] [address] [place] [id number] [place] [address] 22356- 2568 Sep, [facility] [address] [place] [id number] [place] [address] 44121- 8303 Sep, , normal first V22.0 [place] [address] [place] [id number] [place] [address] 47957- 0034 Sep, [facility] [address] [place] [id number] [place] [address] 94977- 1109 Sep, Streptococcus b carrier state affecting 648.90 ; , normal first V22.0 and Rh negative status during 656.10 [facility] [address] [facility] [id number] [address] Sep, [facility] [address] [facility] [id number], [place] [address] 6[address] 08 Sep, 2014 [facility] [address] [facility] [id number], [place] [address] 08 Sep, 2014 , normal first V22.0 ; screening for streptococcus B V28.6 ; Anemia affecting 648.20 and TDAP DX V06.1 IMMUNIZATIONS No Known Immunizations SOCIAL HISTORY Never Assessed REASON FOR VISIT Triage JStrasserRN, [facility] 03/17/18 PLAN OF CARE VITAL SIGNS Height 68 in 2018-03-19 Temperature 97.8 degrees Fahrenheit 2018-03-19 Heart Rate 72 bpm 2018-03-19 Respiratory Rate 20 2018-03-19 Blood pressure systolic 110 mmHg 2018-03-19 Blood pressure diastolic 68 mmHg 2018-03-19 MEDICATIONS Medication Instructions Dosage Frequency Start Date End Date Duration Status Ortho Tri-Cyclen Lo 0.18/0.215/0.25 MG-25 MCG Orally Once a day 1 tablet 24h Oct, 28 day(s) Not-Taking Vyvanse 30 MG Orally Once a day 1 capsule in the morning 24h Nov, Not-Taking RESULTS No Results PROCEDURES No Known procedures INSTRUCTIONS MEDICATIONS ADMINISTERED No Known Medications MEDICAL (GENERAL) HISTORY Type Description Date Medical History ADHD Hospitalization History childbirth only 09/2014
--- OUTSIDE RECORDS SUMMARY | 2018-03-21 | XMS REPORT ---
Author Author SHER SEBASTIAN [facility] Address [address] [place] [address] Care Team Providers Care Director Of Knowledge Management Name Role Phone SHER SEBASTIAN Unavailable PROBLEMS Type Condition ICD9-CM Code QLE08-YG Code Onset Dates Condition Status SNOMED Code Problem Other obesity due to excess calories E66.09 Active 912617332 Problem Body mass index (BMI) of 35.0-35.9 in adult Z68.35 Active 611261078 Problem Low HDL (under 40) E78.6 Active 506777054 Problem Elevated LDL cholesterol level E78.00 Active 991831764 Problem Obesity (BMI 30.0-34.9) E66.9 Active 564264678759213 Problem Attention deficit disorder with hyperactivity F90.9 Active 127544806 ALLERGIES No Known Allergies ENCOUNTERS Encounter Location Date Diagnosis [place] [id number] [place] [address] Jun, Attention deficit disorder with hyperactivity F90.9 ; Other obesity due to excess calories E66.09 ; Body mass index (BMI) of 35.0-35.9 in adult Z68.35 ; Tobacco abuse Z72.0 ; Tobacco abuse counseling Z71.6 ; Low HDL ( under 40) E78.6 and Elevated LDL cholesterol level E78.00 [facility] [address] [place] [id number] [address] Mar, Attention deficit disorder with hyperactivity F90.9 ; Pharyngitis due to Streptococcus species J02.0 ; Screening cholesterol level Z13.220 and Screening for diabetes mellitus (DM) Z13.1 [facility] [address] [place] [id number] [address] Mar, Attention deficit disorder with hyperactivity F90.9 ; Pharyngitis due to Streptococcus species J02.0 ; Obesity (BMI 30.0-34.9) E66.9 ; Screening cholesterol level Z13.220 ; Screening for diabetes mellitus (DM) Z13.1 and Nausea R11.0 [facility] IN [place] [id number] [place] [address] Jan, Sore throat J02.9 and Strep pharyngitis J02.0 [facility] IN [address] [address] Dec, Sore throat J02.9 [facility] IN [address] [address] Nov, Sore throat J02.9 and Acute non-recurrent streptococcal tonsillitis J03.[address] [address] Oct, Impacted cerumen of both ears H61.23 and Acute swimmers ear of right side H60.331 [facility] IN [address] [address] May, Sore throat J02.9 ; Other viral agents as the cause of diseases classified elsewhere B97.89 and Acute upper respiratory infection, unspecified J06.[address] [address]- [address] 13 Mar, 2016 Encounter for Nexplanon removal Z30.46 and control counseling Z30.9 [facility] [place] [id number] [place] [address] 249[address] 16 Feb, 2016 Folliculitis L73.[address] [address]- [address] 03 Dec, 2014 ADHD (attention deficit hyperactivity disorder) 314.[address] [address]- 7473 Dec, Upper respiratory infection, viral 465.9 and ADHD ( attention deficit hyperactivity disorder) 314.01 [address] [place] [address]- 4089 Nov, Nexplanon insertion V25.5 [place] [address] [place] [id number] [place] [address] 02395- 8896 Nov, Routine follow-up V24.2 and Contraceptive education V25.09 [facility] [address] [place] [address] 13927- 8974 Oct, [facility] [address] [place] [id number] [place] [address] 27288- 9149 Oct, [facility] [address] [place] [address] 28983- 9735 Sep, [facility] [address] [place] [id number] [place] [address] 15786- 2373 Sep, [facility] [address] [place] [id number] [place] [address] 78897- 8100 Sep, , normal first V22.0 [facility] [address] [place] [address] 12695- 1393 Sep, [facility] [address] [place] [id number] [place] [address] 31210- 4370 Sep, Streptococcus b carrier state affecting 648.90 ; , normal first V22.0 and Rh negative status during 656.10 [place] [address], [place] [address]- 17[address] Sep, [facility] [address], [place] [address]- 5[address] Sep, [facility] [address] [place] [address] 77320- 7984 Sep, , normal first V22.0 ; screening for streptococcus B V28.6 ; Anemia affecting 648.20 and TDAP DX V06.1 IMMUNIZATIONS No Known Immunizations SOCIAL HISTORY Never Assessed REASON FOR VISIT Ear pain - Right ear pain, went swimming and thinks she got water in it, she has a hx of impaction, and it is also clogged. - Vinnie GONZALEZ PLAN OF CARE Activity Details Follow Up prn Reason: VITAL SIGNS Height 68 in 2016-10-30 Weight 229.0 lbs 2016-10-30 Temperature 98.9 degrees Fahrenheit 2016-10-30 Heart Rate 72 bpm 2016-10-30 Respiratory Rate 18 2016-10-30 BMI 34.82 kg/m2 2016-10-30 Blood pressure systolic 112 mmHg 2016-10-30 Blood pressure diastolic 66 mmHg 2016-10-30 MEDICATIONS Medication Instructions Dosage Frequency Start Date End Date Duration Status Cortisporin 3.5-15044-4 Otic Three times a day 4 drops into affected ear 8h Oct, 7 days Active RESULTS No Results PROCEDURES Procedure Date Ordered Result Body Site EAR LAVAGE 2016-10-30 N/A INSTRUCTIONS MEDICATIONS ADMINISTERED No Known Medications MEDICAL (GENERAL) HISTORY Type Description Date Medical History ADHD Hospitalization History childbirth only 09/2014
--- OUTSIDE RECORDS SUMMARY | 2018-03-21 | XMS REPORT ---
Author Author JUDY CUMMINGS Organization [facility] Address [address] [place] [address] Care Team Providers Care Viscosity Inspector Name Role Phone CUMMINGSJUDY Perkins Unavailable PROBLEMS Type Condition ICD9-CM Code ECR75-WH Code Onset Dates Condition Status SNOMED Code Problem Other obesity due to excess calories E66.09 Active 434283860 Problem Body mass index (BMI) of 35.0-35.9 in adult Z68.35 Active 319276696 Problem Low HDL (under 40) E78.6 Active 099392347 Problem Elevated LDL cholesterol level E78.00 Active 293895037 Problem Obesity (BMI 30.0-34.9) E66.9 Active 267546395840340 Problem Attention deficit disorder with hyperactivity F90.9 Active 614889754 ALLERGIES No Known Allergies ENCOUNTERS Encounter Location Date Diagnosis [facility] [address] [place] [address] Oct, [place] [address] [place] [id number] [place] [address] Jun, 2018 Attention deficit disorder with hyperactivity F90.9 ; Other obesity due to excess calories E66.09 ; Body mass index (BMI) of 35.0-35.9 in adult Z68.35 ; Tobacco abuse Z72.0 ; Tobacco abuse counseling Z71.6 ; Low HDL ( under 40) E78.6 and Elevated LDL cholesterol level E78.00 [facility] [address] [place] [id number] [place] [address] Mar, Attention deficit disorder with hyperactivity F90.9 ; Pharyngitis due to Streptococcus species J02.0 ; Screening cholesterol level Z13.220 and Screening for diabetes mellitus (DM) Z13.1 [place] [address] [place] [id number] [place] [address] Mar, Attention deficit disorder with hyperactivity F90.9 ; Pharyngitis due to Streptococcus species J02.0 ; Obesity (BMI 30.0-34.9) E66.9 ; Screening cholesterol level Z13.220 ; Screening for diabetes mellitus (DM) Z13.1 and Nausea R11.0 [facility] [address] [address] Jan, Sore throat J02.9 and Strep pharyngitis J02.0 [facility] [address] [address] Dec, Sore throat J02.9 [facility] [address] [address] Nov, Sore throat J02.9 and Acute non-recurrent streptococcal tonsillitis J03.[address] [address] Oct, Impacted cerumen of both ears H61.23 and Acute swimmers ear of right side H60.331 [facility] [place] [address] [address] May, Sore throat J02.9 ; Other viral agents as the cause of diseases classified elsewhere B97.89 and Acute upper respiratory infection, unspecified J06.[address] [address] 13 Mar, 2016 Encounter for Nexplanon removal Z30.46 and control counseling Z30.9 [facility] [place] [address] [address] 16 Feb, 2016 Folliculitis L73.[address] [address] 03 Dec, 2014 ADHD (attention deficit hyperactivity disorder) 314.[address] [address] Dec, Upper respiratory infection, viral 465.9 and ADHD ( attention deficit hyperactivity disorder) 314.01 [facility] [address] [address] Nov, Nexplanon insertion V25.5 [facility] [address] [address] Nov, Routine follow-up V24.2 and Contraceptive education V25.09 [facility] [address] [address] Oct, [facility] [address] [address] Oct, [facility] [address] [place] [address] Sep, [facility] [address] [place] [id number] [place] [address] Sep, [facility] [address] [address] Sep, , normal first V22.0 [facility] [address] [address] Sep, [facility] [address] [address] Sep, Streptococcus b carrier state affecting 648.90 ; , normal first V22.0 and Rh negative status during 656.10 [facility] [address] [place] [address] [id number] [address] Sep, [facility] [address] [address] Sep, [facility] [address] [address] Sep, , normal first V22.0 ; screening for streptococcus B V28.6 ; Anemia affecting 648.20 and TDAP DX V06.1 IMMUNIZATIONS No Known Immunizations SOCIAL HISTORY Never Assessed REASON FOR VISIT Establish care, persistant sore throat, seen at [facility] and recommended possible referral to ENT----DBennettRN, nausea,vomiting, diarrhea started yesterday PLAN OF CARE Activity Details Follow Up 3 Months Reason: VITAL SIGNS Height 68 in 2017-03-12 Weight 220 lbs 2017-03-12 Temperature 98.2 degrees Fahrenheit 2017-03-12 Heart Rate 80 bpm 2017-03-12 Respiratory Rate 20 2017-03-12 BMI 33.45 kg/m2 2017-03-12 Blood pressure systolic 104 mmHg 2017-03-12 Blood pressure diastolic 80 mmHg 2017-03-12 MEDICATIONS Medication Instructions Dosage Frequency Start Date End Date Duration Status Ondansetron 4 MG Orally every 8 hrs as needed for nausea 1 tablet on the tongue and allow to dissolve Mar, 10 days Active RESULTS No Results PROCEDURES No Known procedures INSTRUCTIONS MEDICATIONS ADMINISTERED No Known Medications MEDICAL (GENERAL) HISTORY Type Description Date Medical History ADHD Hospitalization History childbirth only 09/2014
--- OUTSIDE RECORDS SUMMARY | 2018-03-21 | XMS REPORT ---
Author Author JASPAL Robert [facility] IN [facility] Address [address] [place] [address] Care Team Providers Care Private Investigator Surveillance Name Role Phone JASPAL Robert Unavailable PROBLEMS Type Condition ICD9-CM Code [id number]-[id number] Code Onset Dates Condition Status SNOMED Code Problem Other obesity due to excess calories E66.09 Active 333416797 Problem Body mass index (BMI) of 35.0-35.9 in adult Z68.35 Active 696137357 Problem Low HDL (under 40) E78.6 Active 002190017 Problem Elevated LDL cholesterol level E78.00 Active 209553565 Problem Obesity (BMI 30.0-34.9) E66.9 Active 199663039808875 Problem Attention deficit disorder with hyperactivity F90.9 Active 260654238 ALLERGIES No Known Allergies ENCOUNTERS Encounter Location Date Diagnosis [place] [address] [place] [address] Jun, 2018 Attention deficit disorder with hyperactivity F90.9 ; Other obesity due to excess calories E66.09 ; Body mass index (BMI) of 35.0-35.9 in adult Z68.35 ; Tobacco abuse Z72.0 ; Tobacco abuse counseling Z71.6 ; Low HDL ( under 40) E78.6 and Elevated LDL cholesterol level E78.00 [facility] [address] [place] [id number] [place] [address] Mar, Attention deficit disorder with hyperactivity F90.9 ; Pharyngitis due to Streptococcus species J02.0 ; Screening cholesterol level Z13.220 and Screening for diabetes mellitus (DM) Z13.1 [facility] [address] [place] [id number] [place] [address] Mar, Attention deficit disorder with hyperactivity F90.9 ; Pharyngitis due to Streptococcus species J02.0 ; Obesity (BMI 30.0-34.9) E66.9 ; Screening cholesterol level Z13.220 ; Screening for diabetes mellitus (DM) Z13.1 and Nausea R11.0 [facility] [address] [address] Jan, Sore throat J02.9 and Strep pharyngitis J02.0 [facility] [address] [address] Dec, Sore throat J02.9 [facility] [address] [address] Nov, Sore throat J02.9 and Acute non-recurrent streptococcal tonsillitis J03.[address] [address] Oct, Impacted cerumen of both ears H61.23 and Acute swimmers ear of right side H60.331 [facility] [address] [address] May, Sore throat J02.9 ; Other viral agents as the cause of diseases classified elsewhere B97.89 and Acute upper respiratory infection, unspecified J06.[address] [address] 13 Mar, 2016 Encounter for Nexplanon removal Z30.46 and control counseling Z30.9 [facility] [address] [address] 16 Feb, 2016 Folliculitis L73.[address] [address] 03 Dec, 2014 ADHD (attention deficit hyperactivity disorder) 314.[address] [address] 01 Dec, 2014 Upper respiratory infection, viral 465.9 and ADHD ( attention deficit hyperactivity disorder) 314.[address] [id number] [address] Nov, Nexplanon insertion V25.5 [place] [address] [place] [address] Nov, Routine follow-up V24.2 and Contraceptive education V25.09 [facility] [address] [address] Oct, [facility] [address] [address] Oct, [facility] [address] [place] [address] Sep, [facility] [address] [place] [address]- [address] Sep, [facility] [address] [address] Sep, , normal first V22.0 [facility] [address] [address] Sep, [facility] [address] [address] 9[address] Sep, Streptococcus b carrier state affecting 648.90 ; , normal first V22.0 and Rh negative status during 656.10 [place] [address] [address] Sep, [facility] [address] [place] [id number] [address] Sep, [facility] [address] [address] Sep, , normal first V22.0 ; screening for streptococcus B V28.6 ; Anemia affecting 648.20 and TDAP DX V06.1 IMMUNIZATIONS No Known Immunizations SOCIAL HISTORY Never Assessed REASON FOR VISIT Sore throat x 1 day. Strep has been going around in the family. E[place], [place]. PLAN OF CARE Activity Details Follow Up prn Reason: VITAL SIGNS Height 68 in 2016-11-06 Weight 225.8 lbs 2016-11-06 Temperature 98.4 degrees Fahrenheit 2016-11-06 Heart Rate 88 bpm 2016-11-06 Respiratory Rate 18 2016-11-06 BMI 34.33 kg/m2 2016-11-06 Blood pressure systolic 128 mmHg 2016-11-06 Blood pressure diastolic 82 mmHg 2016-11-06 MEDICATIONS Medication Instructions Dosage Frequency Start Date End Date Duration Status Amoxicillin 500 MG Orally every 12 hrs 1 capsule 12h Nov, 10 day(s) Active RESULTS Name Result Date Reference Range STREP A (IN HOUSE) 2017-04-16 STREP A Control Lot # Exp date PROCEDURES Procedure Date Ordered Result Body Site STREP A ASSAY W/OPTIC Nov 06, 2016 INSTRUCTIONS MEDICATIONS ADMINISTERED No Known Medications MEDICAL (GENERAL) HISTORY Type Description Date Medical History ADHD Hospitalization History childbirth only 09/2014
--- OUTSIDE RECORDS SUMMARY | 2018-03-21 | XMS REPORT ---
Author Author JULIUS RIVAS [facility] Address [address] [place] [address] Care Team Providers Care Pediatric Registered Nurse Name Role Phone JULIUS RIVAS Unavailable PROBLEMS Type Condition ICD9-CM Code [id number] Code Onset Dates Condition Status SNOMED Code Problem Other obesity due to excess calories E66.09 Active 245723172 Problem Body mass index (BMI) of 35.0-35.9 in adult Z68.35 Active 654752305 Problem Low HDL (under 40) E78.6 Active 958054265 Problem Elevated LDL cholesterol level E78.00 Active 555601627 Problem Obesity (BMI 30.0-34.9) E66.9 Active 619324169029217 Problem Attention deficit disorder with hyperactivity F90.9 Active 374347971 ALLERGIES No Known Allergies ENCOUNTERS Encounter Location Date Diagnosis [facility] [place] [address] [place] [id number] [place] [address] Jun, 2018 Attention deficit disorder with hyperactivity F90.9 ; Other obesity due to excess calories E66.09 ; Body mass index (BMI) of 35.0-35.9 in adult Z68.35 ; Tobacco abuse Z72.0 ; Tobacco abuse counseling Z71.6 ; Low HDL ( under 40) E78.6 and Elevated LDL cholesterol level E78.00 [facility] [address] [id number] [address] Mar, Attention deficit disorder with hyperactivity F90.9 ; Pharyngitis due to Streptococcus species J02.0 ; Screening cholesterol level Z13.220 and Screening for diabetes mellitus (DM) Z13.1 [facility] [place] [address] [facility] [id number] [address] Mar, Attention deficit disorder with hyperactivity F90.9 ; Pharyngitis due to Streptococcus species J02.0 ; Obesity (BMI 30.0-34.9) E66.9 ; Screening cholesterol level Z13.220 ; Screening for diabetes mellitus (DM) Z13.1 and Nausea R11.0 [facility] [place] [id number] [place] [address] Jan, Sore throat J02.9 and Strep pharyngitis J02.[address] [address] Dec, Sore throat J02.[address] [address] Nov, Sore throat J02.9 and Acute non-recurrent streptococcal tonsillitis J03.[address] [address] Oct, Impacted cerumen of both ears H61.23 and Acute swimmers ear of right side H60.[address] [address] May, Sore throat J02.9 ; Other viral agents as the cause of diseases classified elsewhere B97.89 and Acute upper respiratory infection, unspecified J06.9 [place] [id number] [place] [address] 13 Mar, 2016 Encounter for Nexplanon removal Z30.46 and control counseling Z30.9 [facility] [place] [id number] [place] [address] 16 Feb, 2016 Folliculitis L73.[address] [address] 03 Dec, 2014 ADHD (attention deficit hyperactivity disorder) 314.[address] [address] Dec, Upper respiratory infection, viral 465.9 and ADHD ( attention deficit hyperactivity disorder) 314.01 [place] [address] Nov, Nexplanon insertion V25.5 [facility] [place] [address] [place] [address] Nov, Routine follow-up V24.2 and Contraceptive education V25.09 [facility] [address], [place] [address] Oct, [facility] [place] [address] [place] [address] Oct, [facility] [place] [address] [place] [address] Sep, [facility] [address] [place] [id number] [place] [address] Sep, [facility] [place] [address] [place] [address]- [address] Sep, , normal first V22.0 [facility] [place] [address], [place] [address] Sep, [facility] [place] [address] [place] [address]- [address] Sep, Streptococcus b carrier state affecting 648.90 ; , normal first V22.0 and Rh negative status during 656.10 [place] [address], [place] [address] Sep, [facility] [place] [address] [place] [id number] [address] Sep, [facility] [place] [address] [place] [id number] [address] Sep, , normal first V22.0 ; screening for streptococcus B V28.6 ; Anemia affecting 648.20 and TDAP DX V06.1 IMMUNIZATIONS No Known Immunizations SOCIAL HISTORY Never Assessed REASON FOR VISIT Sore throat and cough for 3 weeks. had strep 2 weeks ago and took antibiotic. throat still hurts. [email or web address] PLAN OF CARE Activity Details Follow Up prn Reason: VITAL SIGNS Height 68 in 2017-01-08 Weight 222.2 lbs 2017-01-08 Temperature 98.6 degrees Fahrenheit 2017-01-08 Heart Rate 88 bpm 2017-01-08 Respiratory Rate 20 2017-01-08 BMI 33.78 kg/m2 2017-01-08 Blood pressure systolic 126 mmHg 2017-01-08 Blood pressure diastolic 72 mmHg 2017-01-08 MEDICATIONS Medication Instructions Dosage Frequency Start Date End Date Duration Status Clindamycin HCl 300 MG Orally every 8 hrs 1 capsule 8h Jan,Jan 10 days Active RESULTS Name Result Date Reference Range STREP A (IN HOUSE) 2017-01-08 STREP A positive Control + Lot # [id number] Exp date 2017 PROCEDURES Procedure Date Ordered Result Body Site STREP A ASSAY W/OPTIC Jan 08, 2017 INSTRUCTIONS MEDICATIONS ADMINISTERED No Known Medications MEDICAL (GENERAL) HISTORY Type Description Date Medical History ADHD Hospitalization History childbirth only 09/2014
--- OUTSIDE RECORDS SUMMARY | 2018-03-21 00:01 | XMS REPORT | Continuity of Care Document ---
Author Author [facility] Organization [facility] Address Unknown Phone Unavailable Allergies Active Description Code Type Severity Reaction Onset Reported/Identified Relationship to Patient Clinical Status Yes No Known Drug Allergies [id number] Drug Allergy Unknown N/A 09/25/2014 Medications There [...] DO, Ot J02.9 ACUTE PHARYNGITIS, UNSPECIFIED 01/02/2016 THUY CAMPBELL DO Ot R59.1 GENERALIZED ENLARGED LYMPH NODES 07/07/2017 AGUSTIN PAGE MD Ot M53.3 SACROCOCCYGEAL DISORDERS, NOT ELSEWHERE 07/07/2017 AGUSTIN PAGE MD Ot S30.0XXA CONTUSION OF LOWER BACK AND PELVIS, INIT 07/07/2017 AGUSTIN PAGE MD Ot W10.9XXA FALL (ON) (FROM) UNSPECIFIED STAIRS AND 07/07/2017 AGUSTIN PAGE MD Ot Z87.891 PERSONAL HISTORY OF NICOTINE DEPENDENCE 07/11/2017 AGUSTIN PAGE MD Ot M53.3 SACROCOCCYGEAL DISORDERS, NOT ELSEWHERE 07/11/2017 AGUSTIN PAGE MD Ot S30.0XXA CONTUSION OF LOWER BACK AND PELVIS, INIT 07/11/2017 AGUSTIN PAGE MD Ot W10.9XXA FALL (ON) (FROM) UNSPECIFIED STAIRS AND 07/11/2017 AGUSTIN PAGE MD Ot Z87.891 PERSONAL HISTORY OF NICOTINE DEPENDENCE Procedures Code Description Performed By Performed On 75.69 REPAIR OB LACERATION NEC 09/25/2014 Results Test Result Range Complete blood [...] - 03/26/17 08:48 TSH 0.55 mIU/L NRG PDM - 09 PANEL (PROFILE 1) - 10/12/17 10:53 Creatinine 237.5 mg/dL > or=20.0 pH 6.06 4.5 - 9.0 Oxidant NEGATIVE mcg/mL <200 Amphetamines NEGATIVE ng/mL <500 medMATCH Amphetamines CONSISTENT NRG Benzodiazepines NEGATIVE ng/mL <100 medMATCH Benzodiazepines CONSISTENT NRG Marijuana Metabolite NEGATIVE ng/mL <20 medMATCH Marijuana Metab CONSISTENT NRG Cocaine Metabolite NEGATIVE ng/mL <150 medMATCH Cocaine Metab CONSISTENT NRG Opiates NEGATIVE ng/mL <100 medMATCH Opiates CONSISTENT NRG Oxycodone NEGATIVE ng/mL <100 medMATCH Oxycodone CONSISTENT NRG COMMENT NRG Barbiturates NEGATIVE ng/mL <300 medMATCH Barbiturates CONSISTENT NRG Methadone Metabolite NEGATIVE ng/mL <100 medMATCH Methadone Metab CONSISTENT NRG Phencyclidine NEGATIVE ng/mL <25 medMATCH Phencyclidine CONSISTENT NRG Encounters ACCT No. Visit Date/Time Discharge Status Pt. Type Provider Facility Loc./Unit Complaint [id number] 07/05/2017 19:22:00 07/05/2017 21:15:00 DIS Outpatient AGUSTIN PAGE MD [facility] ER TAILBONE PAIN [id number] 01/01/2016 20:54:00 01/01/2016 22:39:00 DIS Emergency THUY CAMPBELL DO [facility] ER L EAR PAIN/SORE THROAT [id number] 09/25/2014 19:07:00 09/27/2014 16:30:00 DIS Inpatient TODD DE LOS SATNOS DO [facility] LDRP LABOR [id number] 03/19/2018 11:55:00 ACT Outpatient JEFFREY JIMENEZ [facility] [id number] 10/12/2017 10:00:00 Document Registration [id number] 03/26/2017 09:20:00 Document Registration
[2018-03-21] MEDS ORDERED: FLUT9.9S NS (00:33)
[2018-03-21] MEDS ORDERED: AMOX-358 PO (00:33)
[2018-03-21] MEDS ORDERED: LORA1TAB59 PO (00:33)
--- NOTE | 2018-03-21 00:34 | ED EENT ---
History of Present Illness General Chief Complaint: Oral/Throat Problems Stated Complaint: STREP THROAT Nursing Triage Note: sore throat, cough, sneezing, runny nose Source: patient History of Present Illness Date Seen by Provider: Mar 21, 2018 Time Seen by Provider: 00:12 Initial Comments PT ARRIVES VIA POV C/O SORE THROAT C/O NASAL CONGESTION AND YELLOW DRAINAGE C/O NON PRODUCTIVE COUGH NO FEVER NO CHEST PAIN OR SHORTNESS OF BREATH NO DIFFICULTY SWALLOWING STATES "MY SON AND HIS BROTHER HAVE STREP" PT STATES THAT THEY WERE ALL SEEN AT [facility] YESTERDAY, BUT PT DID NOT HAVE ANY TESTS AND NO RX PT HAS NOT TAKEN ANYTHING FOR SYMPTOMS LMP 03/16/18. NORMAL. PCP: [facility] Allergies and Home Medications Allergies Coded Allergies: No Known Drug Allergies (Unverified , 09/25/14) Home Medications Amoxicillin/Potassium Clav 1 Each Tablet, 1 EACH PO BID Prescribed by: FLORA RAYMUNDO on 03/21/1832 Fluticasone Propionate 9.9 Ml [place].susp, 2 SPRAYS NS BID Prescribed by: FLORA RAYMUNDO on 03/21/1832 Loratadine/Pseudoephedrine 1 Each Tab.er.12h, 1 EACH PO BID Prescribed by: FLORA RAYMUNDO on 03/21/1832 Patient Home Medication List Home Medication List Reviewed: Yes Review of Systems Review of Systems Constitutional: no symptoms reported Eyes: No Symptoms Reported Nose: see HPI, congestion, purulent discharge Mouth: no symptoms reported Throat: see HPI, pain; denies hoarse, denies muffled; painful swallowing; denies difficulty with fluids Respiratory: see HPI, cough; No short of breath, No wheezing Cardiovascular: no symptoms reported Gastrointestinal: no symptoms reported LMP: Mar 16, 2018 Musculoskeletal: no symptoms reported Skin: no symptoms reported Neurological: No Symptoms Reported; Denies Headache Hematologic/Lymphatic: No Symptoms Reported Immunological/Allergic: no symptoms reported Past Taxxeid-Zzgnwm-Qlnyrs Hx Patient Social History Alcohol Use: Denies Use Recreational Drug Use: No Smoking Status: Current Everyday Smoker (< 1 PPD) Type Used: Cigarettes 2nd Hand Smoke Exposure: Yes Recent Foreign Travel: No Contact w/Someone Who Travel: No Recent Infectious Disease Expo: No Recent Hopitalizations: No Immunizations Up To Date Tetanus Booster (TDap): Less than 5yrs PED Vaccines UTD: Yes Seasonal Allergies Seasonal Allergies: No Past Medical History Surgeries: No Respiratory: No Cardiac: No Neurological: No : No Last Menstrual Period: Mar 16, 2018 Reproductive Disorders: No Female Reproductive Disorders: Denies Sexually Transmitted Disease: No HIV/AIDS: No Genitourinary: No Gastrointestinal: No Musculoskeletal: No Endocrine: No HEENT: No Cancer: No Psychosocial: No Integumentary: No Blood Disorders: No Adverse Reaction/Blood Tranf: No Family Medical History Psychosocial problem 19 MOTHER (pp depression ) No Family History of: AIDS Abdominal aortic aneurysm Runnels's disease Alcoholism Alzheimer's disease Aphasia Arthritis Asthma Cancer of mouth Cardiovascular disease Cataracts Colon cancer Completed stroke Congenital disease Congenital heart disease Coronary thrombosis Cystic fibrosis Deafness or hearing loss Dementia Diabetes mellitus Drug abuse Dysphasia Fibrocystic disease of breast Gastroenteritis Glaucoma Headache disorder Hypercholesterolemia Hypertension Infertility Kidney disease Myocardial infarction Neoplasm Not obtainable due to adoption Osteoporosis Parkinson's disease Prostate cancer Respiratory disorder Seizure disorder Severe allergy Thyroid disease Tuberculosis Visual disorder Physical Exam Vital Signs Vital Signs - First Documented 03/21/18 00:00 Temp 98.8 Pulse 106 Resp 18 B/P (MAP) 132/84 (100) Pulse Ox 100 O2 Delivery Room Air Height, Weight, BMI Height: 5'8.00" Weight: 200lbs. oz. [id number]; 35.58 BMI Method:Stated General Appearance: WD/WN, no apparent distress, obese Eyes: bilateral eye normal inspection, bilateral eye PERRL, bilateral eye EOMI Ears: right ear TM red; left ear TM dull Nose: No sinus tenderness; other (MODERATE AMOUNT OF NASAL CONGESTION AND CLEAR POST NASAL DRAINAGE. ) Mouth/Throat: No tonsillar swelling, No uvula swelling, No voice changes; other (MILD PHARYNGEAL ERYTHEMA, CLEAR POST NASAL DRAINAGE) Neck: non-tender, full range of motion, supple, lymphadenopathy (R) (MILD ANTERIOR), lymphadenopathy (L) (MILD ANTERIOR) Cardiovascular: regular rate, rhythm, no murmur Respiratory: normal breath sounds, no respiratory distress, no accessory muscle use Gastrointestinal: normal bowel sounds, non tender, soft, no organomegaly Neurologic/Psychiatric: commercial underwriter II-XII nml as tested, no motor/sensory deficits, alert, normal mood/affect, oriented x 3 Skin: normal color, warm/dry; No rash Progress/Results/Core Measures Results/Orders Lab Results Laboratory Tests Test 03/21/18 00:23 Range/Units Group A Streptococcus Screen NEGATIVE NEGATIVE My Orders Orders - FLORA RAYMUNDO DO Rapid Strep A Screen (03/21/18 00:18) Amoxicillin/Clavulanate Tablet (Augmenti (03/21/18 01:00) Vital Signs/I&O 03/21/18 03/21/18 00:00 00:52 Temp 98.8 98.8 Pulse 106 106 Resp 18 18 B/P (MAP) 132/84 (100) 132/84 (100) Pulse Ox 100 100 O2 Delivery Room Air Blood Pressure Mean: 100 Departure Impression Primary Impression: Pharyngitis Additional Impressions: Right otitis media Upper respiratory infection Disposition: HOME, SELF-CARE Condition: Stable Departure-Patient Inst. Referrals: [facility] (PCP/Family) Primary Care Physician Patient Instructions: Bacterial Upper Respiratory Infection, Adult (DC), Ear Infections (Otitis Media) (DC), Sore Throat, Adult (DC) Add. Discharge Instructions: LOTS OF CLEAR LIQUIDS TYLENOL 1 GRAM/ MOTRIN 800 MG 4 TIMES A DAY FOR PAIN OR FEVER FREQUENT SALT WATER GARGLES FOLLOW UP WITH YOUR DR IN 3-4 DAYS IF NO BETTER All discharge instructions reviewed with patient and/or family. Voiced understanding. Scripts Fluticasone Propionate (Flonase Allergy Relief) 9.9 Ml [place].susp 2 SPRAYS NS BID, #1 SPRAY Prov: FLORA RAYMUNDO DO 03/21/18 Loratadine/Pseudoephedrine (Claritin-D 12 Hour Tablet) 1 Each Tab.er.12h 1 EACH PO BID, #20 TAB Prov: FLORA RAYMUNDO DO 03/21/18 Amoxicillin/Potassium Clav (Augmentin 875-125 Tablet) 1 Each Tablet 1 EACH PO BID for INFECTION, #20 TAB Prov: FLORA RAYMUNDO DO 03/21/18 FLORA RAYMUNDO DO Mar 21, 2018 00:34
[2018-03-21 00:52] VITALS: BP 132/84
[2018-03-21] MEDS ORDERED: AUGMENTIN 875 MG TAB (AMOXICILLIN/CLAVULANATE) PO SCH (01:00)
== END 2018-03-21 00:52 | disposition home or self-care (01) ==
LOC: EDUNIT# 23:52 → ER 23:54
DX: J02.9 Acute pharyngitis, unspecified (principal); H66.91 Otitis media, unspecified, right ear; F17.210 Nicotine dependence, cigarettes, uncomplicated; Z79.51 Long term (current) use of inhaled steroids
CPT/HCPCS: 87430; 99284